=== PATIENT | female | born 1955 | race Caucasian/White ===

== ENCOUNTER → 2018-06-21 10:53 | Outpatient (CLI) | payer BC, SELFPAY | DX: Z23 Encounter for immunization (principal) | CPT/HCPCS: 90471; 90686 ==

== ENCOUNTER → 2019-06-08 14:09 | Outpatient (CLI) | payer BC, SELFPAY | DX: Z23 Encounter for immunization (principal) | CPT/HCPCS: 90471; 90686 ==

== ENCOUNTER → 2020-06-13 | Outpatient (CLI) | payer OTHER, BC, SELFPAY | PROVIDERS: PCP Physician Assistant; Referring Provider Internal Medicine; Visit Provider Internal Medicine | DX: Z23 Encounter for immunization (principal) | CPT/HCPCS: 90471; 90686 ==

== ENCOUNTER → 2020-10-04 14:44 | Outpatient (CLI) | payer OTHER, BC, SELFPAY ==
[2020-10-04] MEDS: COVID-19 VACC #1, MRNA(MOD) 100 MCG/0.5 ML VIAL IM (14:55)
== END ==
PROVIDERS: PCP Physician Assistant; Visit Provider Internal Medicine
DX: Z23 Encounter for immunization (principal)
CPT/HCPCS: 0011A; 91301

== ENCOUNTER → 2020-11-01 14:40 | Outpatient (CLI) | payer OTHER, BC, SELFPAY ==
[2020-11-01] MEDS: COVID-19 VACC #2, MRNA(MOD) 100 MCG/0.5 ML VIAL IM (14:46)
== END ==
PROVIDERS: PCP Physician Assistant; Visit Provider Internal Medicine
DX: Z23 Encounter for immunization (principal)
CPT/HCPCS: 0012A; 91301

== ENCOUNTER → 2021-06-12 06:58 | Outpatient (CLI) | payer OTHER, BC, SELFPAY ==
[2021-06-12 09:39] LABS: Hemoglobin 13.4 g/dL (12.0-16.0)
[2021-06-12 10:30] LABS: BUN Creatinine Ratio 20.8 (6-22); Blood Urea Nitrogen 15 mg/dL (7-17); Calcium 9.4 mg/dL (8.4-10.2); Carbon Dioxide 31 mmol/L (22-32); Chloride 100 mmol/L (98-107); Cholesterol 304 mg/dL (140-199); Estimated Glomerular Filt Rate > 60.0 mL/min (>60); Glucose 91 mg/dL (80-110); HDL Cholesterol 68 mg/dL (40-60); HEMOLYSIS < 15 (0-50); LDL Cholesterol Calculated 221 mg/dL (<100); Potassium 4.5 mmol/L (3.4-5.1); Sodium 136 mmol/L (137-145); Triglycerides 73 mg/dL (35-150)
[2021-06-12 11:49] LABS: LDL Cholesterol Direct 208 mg/dL (<100)
== END ==
PROVIDERS: PCP Physician Assistant; Referring Provider Physician Assistant; Visit Provider Physician Assistant
DX: E78.5 Hyperlipidemia, unspecified (principal)
CPT/HCPCS: 36415; 80048; 80061; 83721; 85014; 85018

== ENCOUNTER → 2021-06-19 11:17 | Outpatient (CLI) | payer OTHER, BC, SELFPAY | PROVIDERS: PCP Physician Assistant; Referring Provider Internal Medicine; Visit Provider Internal Medicine | DX: Z23 Encounter for immunization (principal) | CPT/HCPCS: 90471; 90686 ==

== ENCOUNTER → 2021-07-18 14:24 | Outpatient (CLI) | payer OTHER, BC, SELFPAY ==
[2021-07-18] MEDS: COVID-19 VACC #3, MRNA(MOD) 50 MCG/0.25 ML VIAL IM (14:30)
== END ==
PROVIDERS: PCP Physician Assistant; Visit Provider Internal Medicine
DX: Z23 Encounter for immunization (principal)
CPT/HCPCS: 0013A; 91301

== ENCOUNTER → 2021-10-02 06:55 | Outpatient (CLI) | payer OTHER, BC, SELFPAY ==
[2021-10-02 09:19] LABS: TSH w/ Reflex to FT4 1.13 uIU/mL (0.47-4.68)
[2021-10-03 05:41] LABS: Immunoglobulin A 172 mg/dL (87-352)
[2021-10-03 15:48] LABS: Tissue Transglutaminase IgA <2 U/mL (0-3)
== END ==
PROVIDERS: PCP Physician Assistant; Referring Provider Physician Assistant; Visit Provider Physician Assistant
DX: R19.8 Other specified symptoms and signs involving the digestive system and abdomen (principal); R14.0 Abdominal distension (gaseous); R10.9 Unspecified abdominal pain
CPT/HCPCS: 36415; 82784; 83516; 84443

== ENCOUNTER → 2021-10-08 14:46 | Outpatient (CLI) | payer OTHER, BC, SELFPAY ==
--- NOTE | 2021-10-08 | DI.US.S_ITS ---
PROCEDURE: US PELVIC COMPLETE INDICATIONS: LOWER ABDOMINAL PAIN TECHNIQUE: Real-time scanning was performed of the pelvic organs, with image documentation. Additional endovaginal scanning was necessary due to incomplete visualization of the adnexal and endometrial structures by transabdominal scanning. COMPARISON: None. FINDINGS: Uterus: Uterus is anteverted and normal in size at 6.5 x 4.4 x 2.7 cm. The myometrium is slightly heterogeneous. No discrete uterine fibroid is seen. The endometrium measures 1.2 mm combined thickness. There is trace amount of anechoic fluid seen within endometrium. Complex and hyperechoic solid-appearing mass is noted within left endometrium and measures 4 x 6.3 x 2.1 mm in size. No internal vascularity is seen. 7.1 x 5.2 x 2.4 mm hyperechoic and solid appearing nodule is noted in right side of endometrium with internal vascularity. Nabothian cysts are noted along the endocervical canal. Ovaries: Bilateral ovaries are not visualized on this study. Prominent bilateral adnexal veins are seen. No gross adnexal mass. Other: No pathologic free abdominal or pelvic fluid. IMPRESSION: 1. 2 sub cm solid-appearing nodules seen in endometrium as described above concerning for endometrial polyps. Neoplasm cannot be excluded. [employer] correlation is recommended. 2. Mildly heterogeneous myometrial echotexture, no discrete uterine fibroids. 3. Bilateral ovaries are not visualized on this study. No gross adnexal mass. Prominent bilateral adnexal veins which can be seen associated with pelvic congestion syndrome. We strive to produce accurate, complete, and clear reports of imaging services. To assist us in improving patient care, this report was composed using standard report templates and voice recognition software. Therefore, it may contain abnormal punctuation, insertions and/or omissions. Occasional wrong-word or sound-alike substitutions may occur. Though we review the report and make efforts to correct it, we do recommend that the report be read carefully in proper context to recognize any text inaccuracies. Dictated by: Adonis Celis M.D. on 10/08/2021 at 17:00 Approved by: Adonis Celis M.D. on 10/08/2021 at 17:04
== END ==
PROVIDERS: PCP Physician Assistant; Referring Provider Physician Assistant; Visit Provider Physician Assistant
DX: D26.1 Other benign neoplasm of corpus uteri (principal); R10.30 Lower abdominal pain, unspecified; R10.2 Pelvic and perineal pain
CPT/HCPCS: 76830; 76856

== ENCOUNTER → 2021-10-09 07:15 | Outpatient (CLI) | payer OTHER, BC, SELFPAY ==
--- NOTE | 2021-10-09 | DI.US.S_ITS ---
PROCEDURE: US ABDOMEN COMPLETE INDICATIONS: ABDOMINAL DISTENTION TECHNIQUE: Real-time scanning was performed of the abdominal and retroperitoneal organs, with image documentation. COMPARISON: None. FINDINGS: Liver: Liver is normal in size and homogeneous in echotexture. Gallbladder: Normally distended gallbladder with no wall thickening or pericholecystic fluid. Biliary ducts: Intrahepatic bile ducts are non-dilated. Extrahepatic bile duct caliber measures 3 mm. Normal is 6-7 mm or less in diameter, or 10 mm or less post-cholecystectomy. Pancreas: Visualized portions of the pancreas are sonographically normal. Spleen: Spleen is normal in size and homogeneous in echotexture. Kidneys: Normal appearance. Aorta: Visualized aorta is normal in caliber at less than 3 cm. Iliacs: Proximal common iliac arteries are normal in caliber at less than 2.5 cm. IVC: Intrahepatic inferior vena cava is patent. Miscellaneous: No free abdominal fluid. IMPRESSION: Normal study. Dictated by: Hernan Quiroga M.D. on 10/09/2021 at 8:50 Approved by: Hernan Quiroga M.D. on 10/09/2021 at 8:53
== END ==
PROVIDERS: PCP Physician Assistant; Referring Provider Physician Assistant; Visit Provider Physician Assistant
DX: R19.8 Other specified symptoms and signs involving the digestive system and abdomen (principal); R14.0 Abdominal distension (gaseous); R10.9 Unspecified abdominal pain; Z86.010 Personal history of colon polyps
CPT/HCPCS: 76700

== ENCOUNTER → 2022-06-09 09:00 | Outpatient (CLI) | payer OTHER, BC, SELFPAY | PROVIDERS: PCP Physician Assistant; Referring Provider Internal Medicine; Visit Provider Internal Medicine | DX: Z23 Encounter for immunization (principal) | CPT/HCPCS: 90471; 90686 ==

== ENCOUNTER → 2022-07-28 07:06 | Outpatient (CLI) | payer OTHER, BC, SELFPAY ==
[2022-07-28 08:00] LABS: Add Manual Diff / Slide Review NO; Basophils Absolute Auto 0 /uL (0-100); Basophils Percent Auto 0.8 % (0-2); Eosinophils Absolute Auto 100 /uL (0-450); Eosinophils Percent Auto 1.8 % (2-4); Hematocrit 38.9 % (36-46); Hemoglobin 13.1 g/dL (12.0-16.0); Lymphocytes Absolute Auto 1600 /uL (1100-4500); Lymphocytes Percent Auto 30.1 % (25-40); Mean Corpuscular HGB Conc 33.7 % (30-36); Mean Corpuscular Hemoglobin 30.1 PG (26-34); Mean Corpuscular Volume 89.3 fL (80-100); Monocytes Absolute Auto 600 /uL (0-900); Monocytes Percent Auto 10.5 % (3-14); Neutrophils Absolute Auto 3000 /uL (1500-7000); Neutrophils Percent Auto 56.8 % (50-75); Platelet Count 220 X10^3/uL (150-400); Red Blood Cell Count 4.35 X10^6/uL (4.0-5.2); Red Cell Distribution Width 12.8 % (11.6-14.8); White Blood Cell Count 5.3 X10^3/uL (4.5-11.0)
[2022-07-28 08:03] LABS: Hemoglobin A1C% w Est Avg Glu 5.7 % (4.0-6.0)
[2022-07-28 08:18] LABS: Alanine Aminotransferase 23 IU/L (<35); Albumin 4.1 g/dL (3.5-5.0); Albumin Globulin Ratio 1.4 (1.0-2.8); Alkaline Phosphatase 68 U/L (38-126); Aspartate Aminotransferase 27 IU/L (14-36); BUN Creatinine Ratio 18.2 (6-22); Bilirubin Total 0.6 mg/dL (0.2-1.3); Blood Urea Nitrogen 14 mg/dL (7-17); Calcium 9.1 mg/dL (8.4-10.2); Carbon Dioxide 29 mmol/L (22-32); Chloride 98 mmol/L (98-107); Cholesterol 315 mg/dL (140-199); Estimated Glomerular Filt Rate > 60 mL/min (>60); Globulin 2.9 g/dL (1.7-4.1); Glucose 94 mg/dL (80-110); HDL Cholesterol 68 mg/dL (40-60); HEMOLYSIS < 15 (0-50); LDL Cholesterol Calculated 233 mg/dL (<100); Sodium 132 mmol/L (137-145); Triglycerides 69 mg/dL (35-150)
== END ==
PROVIDERS: PCP Physician Assistant; Referring Provider Physician Assistant; Visit Provider Physician Assistant
DX: R10.84 Generalized abdominal pain (principal); E78.5 Hyperlipidemia, unspecified
CPT/HCPCS: 36415; 80053; 80061; 83036; 85025

== ENCOUNTER → 2023-07-01 13:57 | Outpatient (CLI) | payer OTHER, BC, SELFPAY | PROVIDERS: PCP Physician Assistant; Referring Provider Family Medicine; Visit Provider Family Medicine | DX: Z23 Encounter for immunization (principal) | CPT/HCPCS: 90471; 90686 ==

== ENCOUNTER → 2024-06-21 19:08 | Outpatient (CLI) | payer OTHER, BC, SELFPAY | PROVIDERS: PCP Physician Assistant; Referring Provider Internal Medicine; Visit Provider Internal Medicine | DX: Z23 Encounter for immunization (principal) | CPT/HCPCS: 90471; 90656 ==